=== PATIENT | female | born 1970 | race Hispanic/Latino ===

== ENCOUNTER → 2017-05-27 | Outpatient (CLI) | payer BC | END | disposition home or self-care (01) | LOC: RAH 15:18 | PROVIDERS: ATTEND Orthopaedic Surgery | DX: S83.232A Complex tear of medial meniscus, current injury, left knee, initial encounter (principal); M17.12 Unilateral primary osteoarthritis, left knee; X58.XXXA Exposure to other specified factors, initial encounter; Y93.89 Activity, other specified; Y92.89 Other specified places as the place of occurrence of the external cause; Y99.8 Other external cause status | CPT/HCPCS: 73721 ==

== ENCOUNTER 2020-06-26 06:32 | Day surgery (SDC) | payer BC ==
[2020-06-22 09:45] VITALS: BP 135/66
[2020-06-22 11:31] LABS: BASOPHILS % (AUTO) 0.9 % (0.0-5.0); EOSINOPHILS % (AUTO) 0.6 % (0.0-8.0); HEMATOCRIT 40.2 % (36-48); LYMPHOCYTES % (AUTO) 27.4 % (21.0-51.0); MEAN CORPUSCULAR HEMOGLOBIN 28.4 pg (27.0-33.0); MEAN CORPUSCULAR HGB CONC 32.1 g/dL (32.0-36.0); MEAN CORPUSCULAR VOLUME 88.5 fL (79-99); MONOCYTES % (AUTO) 7.9 % (3.0-13.0); NEUTROPHILS % (AUTO) 62.8 % (40.0-77.0); PLATELET COUNT (AUTO) 274 K/uL (130-400); RED BLOOD CELL COUNT(AUTO) 4.54 MIL/uL (4.00-5.50); RED CELL DISTRIBUTION WIDTH 14.3 % (11.0-15.5); WHITE BLOOD COUNT (AUTO) 5.3 K/uL (4.8-10.8)
[2020-06-22 11:36] LABS: CREATININE 0.8 mg/dL (0.5-1.5); POTASSIUM 4.3 mmol/L (3.5-5.1)
[2020-06-26] VITALS (17 sets, daily range): BP systolic 114–134; BP diastolic 62–78
[~2020-06-26] VITALS: Ht 159 cm; Wt 77.3 kg
[~2020-06-26 06:32] MED LIST: [UNRECOGNIZED DRUG - CODE] VG
[2020-06-26] MEDS ORDERED: LACTATED RINGERS 1000ML 1,000 ML IV ONE (06:47)
[2020-06-26] MEDS ORDERED: CEFAZOLIN SODIUM 1 GM VIAL ONE (06:47)
[2020-06-26] MEDS ORDERED: ONDANSETRON HCL 4 MG/2 ML VIAL ONE (07:22)
[2020-06-26] MEDS ORDERED: MIDAZOLAM HCL 1 MG/ML 2ML VIAL ONE (07:22)
[2020-06-26] MEDS ORDERED: DEXAMETHASONE SOD PHOSPHATE 4 MG/ML 1ML VIAL ONE (07:22)
[2020-06-26] MEDS ORDERED: SUCCINYLCHOLINE CHLORIDE 20 MG/ML 10 ML VIAL ONE (07:22)
[2020-06-26] MEDS ORDERED: ROCURONIUM 10MG/1ML SYR 10 MG/ML ML ONE (07:23)
[2020-06-26] MEDS ORDERED: NEOSTIGMINE 5MG/5ML SYR IV ONE (07:23)
[2020-06-26] MEDS ORDERED: PROPOFOL 10 MG/ML 20ML VIAL IV ONE (07:23)
[2020-06-26] MEDS ORDERED: FENTANYL CITRATE PF 50 MCG/1 ML 2ML VIAL ONE (07:23)
[2020-06-26] MEDS ORDERED: GLYCOPYRROLATE 1 MG/5 ML SYRINGE ONE (07:23)
[2020-06-26] MEDS ORDERED: LIDOCAINE PF 2% 5ML ABBOJECT ONE (07:25)
[2020-06-26] MEDS ORDERED: CEFAZOLIN SODIUM 1 GM VIAL IVP ONE (08:00)
[2020-06-26] MEDS ORDERED: KETOROLAC TROMETHAMINE 30MG/ML ONE (09:18)
[2020-06-26] MEDS ORDERED: ACET1TAB25 PO (09:27)
[2020-06-26] MEDS ORDERED: IBUP-2070 PO (09:27)
[2020-06-26] MEDS ORDERED: MEPERIDINE-PF 25 MG/ML SYG ONE ×2 (09:42→09:54)
== END 2020-06-26 11:15 | disposition home or self-care (01) ==
LOC: DAH 06:32
PROVIDERS: ATTEND Orthopaedic Surgery
DX: S83.241A Other tear of medial meniscus, current injury, right knee, initial encounter (principal); M22.41 Chondromalacia patellae, right knee; Z98.890 Other specified postprocedural states; X58.XXXA Exposure to other specified factors, initial encounter; Y93.89 Activity, other specified; Y92.89 Other specified places as the place of occurrence of the external cause; Y99.8 Other external cause status; Z20.828 Contact with and (suspected) exposure to other viral communicable diseases
CPT/HCPCS: 29881; 36415; 80048; 85025; A4215; A4221; A4222; A4223; A4606; A4649 ×2; A4663; A4930 ×2; A5120; A6223; C9803; J0330; J0690; J1100; J1885; J2001; J2175 ×2; J2250; J2405; J2704; J2710; J3010; J3490; J7120 ×2; U0003